=== PATIENT | female | born 1955 | race Caucasian/White ===

== ENCOUNTER 2016-05-16 09:35 | Day surgery (SDC) | payer BC ==
[2016-05-12 12:40] VITALS: BMI 23.6
[~2016-05-16 09:35] MED LIST: LACTATED RINGERS 1,000 ML IV SCH; LIDOCAINE 1% 20 ML VIAL (10MG/ML) FOR IV START INTRADERMA PRN
[2016-05-16 09:56] VITALS: RESP 16; TEMP 97.9
[2016-05-16] MEDS ORDERED: PROPOFOL 10 MG/ML 20 ML VIAL IV ONE (10:57)
[2016-05-16] MEDS ORDERED: LIDOCAINE 1% INJ 10MG/ML (20 ML MDV) ONE (10:57)
--- NOTE | 2016-05-16 11:37 | P.PCN ---
Date of Procedure: 05/16/16 Procedure(s) Performed: Procedure: Total colonoscopy. Preoperative diagnosis: Screening for neoplasia, patient has history of polyps. Postoperative diagnosis: Sigmoid diverticulosis with no evidence of acute diverticulitis, strictures, polyps or cancer. Preparation: HalfLytely prep. Sedation: Was provided by anesthesia. Brief clinical history: The patient is a 61-year-old female who is referred for this evaluation for screening for neoplasia. The patient had her first colonoscopy at age 51 and she believes she had polyps removed at that time. At this time, she has no abdominal complaints, bleeding or anemia. Procedure: With the patient on her left lateral decubitus position and after informed consent and adequate sedation, the perianal area was inspected and it did not show any fissures or fistulas. There were no masses felt on digital rectal examination. The Olympus CFQ 160L video colonoscope was then inserted in the rectum in the usual fashion and advanced to the cecum. There were multiple diverticular orifices seen scattered in the sigmoid but I saw no evidence of acute diverticulitis or strictures. No polyps or tumors were seen. The mucosa appeared healthy. I retroflexed endoscope in the rectum before the endoscope was withdrawn. The patient tolerated the procedure well. Plan: The patient was reassured. Discussed dietary measures. I recommended repeat exam in 5 years. She will follow-up with you as planned.
[2016-05-16 11:43] VITALS: BP 107/66; PULSE 70
== END 2016-05-16 12:16 | disposition home or self-care (01) ==
LOC: ORWHC2ENDO 09:35
DX: Z12.11 Encounter for screening for malignant neoplasm of colon (principal); Z86.010 Personal history of colon polyps; K57.30 Diverticulosis of large intestine without perforation or abscess without bleeding; E07.9 Disorder of thyroid, unspecified; Z88.8 Allergy status to other drugs, medicaments and biological substances; Z79.899 Other long term (current) drug therapy
CPT/HCPCS: J2001; J2704; G0105; 99153

== ENCOUNTER → 2017-04-04 | Outpatient (CLI) | payer BC ==
--- NOTE | 2017-04-05 12:01 | MM ---
Reason for exam: screening (asymptomatic). Last mammogram was performed 1 year and 1 month ago. History: Patient is postmenopausal and history of other cancer. Family history of breast cancer in 2 paternal cousins. 2 core biopsies of the left breast. Physical Findings: A clinical breast exam by your physician is recommended on an annual basis and results should be correlated with mammographic findings. MG Screening Mammo w CAD Bilateral CC and MLO view(s) were taken. Prior study comparison: March 08, 2016, bilateral MG screening mammo w CAD. September 07, 2015, right breast MG 3d diag mammo w/cad RT. The breast tissue is heterogeneously dense. This may lower the sensitivity of mammography. Finding: There are typically benign round calcifications in both breasts. There is a chronic nodularity in the right breast. There is no discrete abnormality. ASSESSMENT: Benign, BI-RAD 2 RECOMMENDATION: Routine screening mammogram of both breasts in 1 year.
== END | disposition home or self-care (01) ==
LOC: RADMAMWWP 12:22
PROVIDERS: ATTEND Family Medicine
DX: Z12.31 Encounter for screening mammogram for malignant neoplasm of breast (principal)

== ENCOUNTER → 2017-05-25 | Outpatient (CLI) | payer BC ==
--- NOTE | 2017-05-25 23:05 | MR ---
EXAMINATION TYPE: MR knee LT wo con DATE OF EXAM: 05/25/2017 COMPARISON: NONE HISTORY: Lt knee pain x 4 years TECHNIQUE: Multiplanar, multisequence imaging of the left knee is performed without IV contrast. FINDINGS: There is a large knee joint effusion. There is a large popliteal cyst. This measures 6 x 3 cm. The posterior cruciate ligament is intact. There is some thinning of the anterior cruciate ligament. There is at least a partial tear. There is horizontal defect in the posterior horn medial meniscus extending to the inferior surface. T he lateral meniscus appears intact. There is mild narrowing of the medial joint space with spurring o f the medial femoral and tibial condyles. There is subcutaneous edema over the anterior aspect of the knee. There is no evidence of a fracture. IMPRESSION: Large knee joint effusion and large popliteal cyst. Subcutaneous edema over the anterior knee. Horizontal tear posterior horn of the medial meniscus. Mild osteoarthritis in the medial joint space. There is probably a complete tear of the anterior cruciate ligament.
== END | disposition home or self-care (01) ==
LOC: RADMRIMAIN 19:42
PROVIDERS: ATTEND Orthopaedic Surgery
DX: M71.22 Synovial cyst of popliteal space [Baker], left knee (principal); S83.242A Other tear of medial meniscus, current injury, left knee, initial encounter; M17.12 Unilateral primary osteoarthritis, left knee

== ENCOUNTER → 2017-06-15 | Outpatient (CLI) | payer BC ==
[2017-06-15 17:11] LABS: Basophils # (A) 0.1 k/uL (0-0.2); Basophils % (A) 1 %; Eosinophils # (A) 0.2 k/uL (0-0.7); Eosinophils % (A) 3 %; HCT 44.9 % (34.0-46.0); HGB 14.7 gm/dL (11.4-16.0); Lymphocytes # (A) 2.6 k/uL (1.0-4.8); Lymphocytes % (A) 37 %; MCH 30.8 pg (25.0-35.0); MCHC 32.8 g/dL (31.0-37.0); Mean Platelet Volume 7.2; Monocytes # (A) 0.4 k/uL (0-1.0); Monocytes % (A) 5 %; Neutrophils # (A) 3.8 k/uL (1.3-7.7); Neutrophils % (A) 53 %; Platelet Count 270 k/uL (150-450); RBC 4.77 m/uL (3.80-5.40); RDW 12.8 % (11.5-15.5); WBC 7.1 k/uL (3.8-10.6)
[2017-06-15 17:57] LABS: Potassium 4.6 mmol/L (3.5-5.1)
== END | disposition home or self-care (01) ==
LOC: LABPAT 16:48
PROVIDERS: ATTEND Orthopaedic Surgery
DX: Z01.812 Encounter for preprocedural laboratory examination (principal); M23.92 Unspecified internal derangement of left knee
CPT/HCPCS: 36415; 80051; 85025

== ENCOUNTER 2017-06-28 09:13 | Day surgery (SDC) | payer BC ==
[2017-06-23 10:05] VITALS: BMI 23.2
--- NOTE | 2017-06-27 12:54 | HP ---
HISTORY AND PHYSICAL DATE OF SERVICE: 06/28/2017 Obdulia Schwab is a 62-year-old patient seen with progressive left knee pain. Treatment and options were discussed. She elected to proceed with left knee arthroscopy. Consent was obtained. PAST MEDICAL HISTORY: Hypothyroidism. PAST SURGICAL HISTORY: Foot surgery. DAILY MEDICATIONS: 1. Thyroxine. 2. Meloxicam. ALLERGIES: BENZOYL PEROXIDE. SOCIAL HISTORY: Patient denies current tobacco use. PHYSICAL EVALUATION OF THE LEFT KNEE: Range of motion is -2/3 to 110 degrees, mild intra-articular effusion. Tenderness along the medial and lateral joint lines. Positive medial Triston's. Positive lateral Triston's. Ligaments stable. Hip rotation without pain. Distal neurovascular exam intact. LEFT KNEE RADIOGRAPHS: Revealed mild to moderate medial and mild patellofemoral compartment osteoarthritis of the left knee. MRI revealed a medial meniscal tear and a joint effusion. IMPRESSION: Internal derangement left knee with medial meniscal tear. PLAN: Left knee arthroscopy with partial meniscectomy and debridement. MMODL / IJN: [id number] /
[~2017-06-28 09:13] MED LIST changes: +DEXAMETHASONE SOD PHOSPHATE 10 MG/ML 1 ML VIAL IV ONE; +ONDANSETRON 4 MG/2 ML VIAL IVP ONE; +SCOPOLAMINE 1.5MG/72HR PATCH TRANSDERM ONE; +ceFAZolin 1,000 MG in DEXTROSE/WATER 1 50ML.BAG IV ONE
[2017-06-28] MEDS ORDERED: ONDANSETRON 4 MG/2 ML VIAL ONE (10:49)
[2017-06-28] MEDS ORDERED: KETOROLAC 30 MG/ML 1 ML VIAL ONE (10:49)
[2017-06-28] MEDS ORDERED: fentaNYL (PF) 50 MCG/ML 2 ML AMP ONE (10:49)
[2017-06-28] MEDS ORDERED: LIDOCAINE 1% INJ 10MG/ML (20 ML MDV) ONE (10:49)
[2017-06-28] MEDS ORDERED: ceFAZolin IN SWFI 2 GM/20 ML SYRINGE IVP ONE (10:49)
[2017-06-28] MEDS ORDERED: PROPOFOL 10 MG/ML 20 ML VIAL IV ONE (10:49)
[2017-06-28] MEDS: HYDROmorphone 0.5 MG/0.5 ML SYRINGE IVP PRN ×4 (11:48→12:20)
--- NOTE | 2017-06-28 11:50 | P.OP ---
Date of Procedure: 06/28/17 Preoperative Diagnosis: Internal derangement left knee Postoperative Diagnosis: 1. Medial and lateral meniscal tears left knee 2. Grade 4 chondromalacia medial femoral condyle left knee 3. Grade 2/3 chondromalacia patella left knee 4. Partial ACL tear left knee 5. Reactive synovitis medial and suprapatellar compartments left knee Procedure(s) Performed: 1. Arthroscopic partial medial and lateral meniscectomy left knee 2. Arthroscopic chondroplasty medial femoral condyle left knee 3. Arthroscopic chondroplasty patella left knee 4. Arthroscopic microfracture medial femoral condyle left knee 5. Arthroscopic debridement partial ACL tear left knee 6. Arthroscopic partial synovectomy medial and suprapatellar compartments left knee Anesthesia: [place], local Surgeon: Phill Garrison Estimated Blood Loss (ml): 10 Pathology: none sent Condition: stable Disposition: PACU Indications for Procedure: 62-year-old patient seen with progressive left knee pain. After having treatment options discussed, she elected to proceed with arthroscopy. Operative Findings: see description of procedure Description of Procedure: Patient was taken to the operative suite. Patient underwent a general anesthetic by the department of anesthesia. Patient was given preoperative antibiotics. The left lower extremity was placed in a well-padded arthroscopic leg barker. The left leg was prepped and draped in the normal sterile orthopedic fashion. A lateral parapatellar and suprapatellar incision was made. Trochars were inserted. Arthroscopy was initiated. Suprapatellar pouch revealed diffuse thick reactive synovitis. The patellofemoral joint appeared to articulate congruently. There was grade 2/3 chondromalacia patella with some osteochondral tears present. The scope was guided into the medial gutter. No loose bodies or plica were identified. The scope was then guided into the medial compartment. A medial parapatellar incision was made. Trocar inserted followed by probe. There was a complex tear involving the posterior horn of the medial meniscus. There was grade 3/4 chondromalacia of the medial femoral condyle with osteochondral tears present. There was reactive synovitis anteriorly. No loose bodies. I performed a partial medial meniscectomy down to stable tissue. I performed a chondroplasty of the medial femoral condyle down to stable tissue and partial synovectomy. There was an area of exposed bone on the medial femoral condyle. I performed a microfracture to that area. An probed the residual meniscus and it was stable. The residual osteochondral surface of the femoral condyle was stable. Scope and probe were then guided into the intercondylar notch. Cruciates were identified, there was some superficial/partial tearing of the ACL present. I debrided that this down to stable tissue. It involved approximately 20-25% of the ACL the residual tissue was stable. The PCL appeared stable. The scope and probe were then guided into lateral compartment. There was a small radial tear in the posterior horn lateral meniscus. No chondromalacia, reactive synovitis or loose bodies. I performed a partial lateral meniscectomy. The residual meniscus was stable. The scope was in guided back into the suprapatellar compartment. Used a motorized shaver into the suprapatellar compartment. I debrided piecemeal fragments of meniscus. I performed a chondroplasty of patella. I performed a partial synovectomy. Shaver was removed. I took one more look around the entire knee, no residual debris. Instruments were now removed from the joint. The joint was infiltrated with .25% Marcaine. Steri-Strips were applied to the portal sites. Sterile dressings were applied. The patient was placed into a ANTOINETTE hose. No tourniquet was utilized. The patient was awakened, transferred to a bed and taken to recovery stable satisfactory condition.
[2017-06-28 11:54] VITALS: TEMP 97
[2017-06-28] MEDS ORDERED: LACTATED RINGERS 1,000 ML IV ONE (12:52)
[2017-06-28] MEDS ORDERED: HYDROcodone/APAP 5-325MG 1 EACH TAB PO ONE (13:18)
[2017-06-28 14:04] VITALS: BP 112/67; PULSE 58; RESP 18
== END 2017-06-28 14:45 | disposition home or self-care (01) ==
LOC: OR 09:13
PROVIDERS: ATTEND Orthopaedic Surgery
DX: S83.242A Other tear of medial meniscus, current injury, left knee, initial encounter (principal); S83.282A Other tear of lateral meniscus, current injury, left knee, initial encounter; S83.512A Sprain of anterior cruciate ligament of left knee, initial encounter; X58.XXXA Exposure to other specified factors, initial encounter; M22.42 Chondromalacia patellae, left knee; M65.862 Other synovitis and tenosynovitis, left lower leg; E03.9 Hypothyroidism, unspecified; Z79.1 Long term (current) use of non-steroidal anti-inflammatories (NSAID); Z79.51 Long term (current) use of inhaled steroids; Z79.899 Other long term (current) drug therapy; Z88.5 Allergy status to narcotic agent; Z88.8 Allergy status to other drugs, medicaments and biological substances
CPT/HCPCS: 29880; 29879; J1100; J2405; J2001; J3010; J1885; J2704; J1170; J0690

== ENCOUNTER → 2018-02-13 | Outpatient (CLI) | payer BC ==
[2018-02-13 14:33] LABS: Basophils % (A) 1 %; Eosinophils # (A) 0.2 k/uL (0-0.7); Eosinophils % (A) 3 %; HGB 14.6 gm/dL (11.4-16.0); Lymphocytes # (A) 2.4 k/uL (1.0-4.8); Lymphocytes % (A) 42 %; MCH 30.7 pg (25.0-35.0); MCHC 33.2 g/dL (31.0-37.0); MCV 92.2 fL (80.0-100.0); Mean Platelet Volume 7.3; Monocytes # (A) 0.3 k/uL (0-1.0); Monocytes % (A) 5 %; Neutrophils # (A) 2.7 k/uL (1.3-7.7); Neutrophils % (A) 47 %; Platelet Count 256 k/uL (150-450); RBC 4.77 m/uL (3.80-5.40); RDW 12.9 % (11.5-15.5); WBC 5.8 k/uL (3.8-10.6)
[2018-02-13 15:20] LABS: ALT 18 U/L (9-52); AST 26 U/L (14-36); Albumin 4.2 g/dL (3.5-5.0); Alkaline Phosphatase 72 U/L (38-126); Anion Gap 10 mmol/L; Blood Urea Nitrogen 16 mg/dL (7-17); Calcium 9.8 mg/dL (8.4-10.2); Carbon Dioxide 27 mmol/L (22-30); Chloride 103 mmol/L (98-107); Cholesterol 250 mg/dL (<200); Glucose 87 mg/dL (74-99); Sodium 140 mmol/L (137-145); Total Bilirubin 0.7 mg/dL (0.2-1.3); Total Protein 7.3 g/dL (6.3-8.2); Triglycerides 93 mg/dL (<150)
[2018-02-13 15:34] LABS: HDL Cholesterol 73 mg/dL (40-60); LDL Cholesterol,Calculated 158 mg/dL (0-99)
== END | disposition home or self-care (01) ==
LOC: LABWHC1 12:05
PROVIDERS: ATTEND Family Medicine
DX: E78.5 Hyperlipidemia, unspecified (principal); E03.9 Hypothyroidism, unspecified
CPT/HCPCS: 36415; 80053; 80061; 84443; 85025

== ENCOUNTER → 2018-05-11 | Outpatient (CLI) | payer BC ==
--- NOTE | 2018-05-11 11:12 | US ---
EXAMINATION TYPE: US pelvic complete DATE OF EXAM: 05/11/2018 COMPARISON: 2011 US CLINICAL HISTORY: R10.11 RUQ PAIN. Pelvic pain TECHNIQUE: Transabdominal (TA). Date of LMP: post menopausal, no HRT. EXAM MEASUREMENTS: Uterus: 6.5 x 3.8 x 4.9 cm Endometrial Stripe: 0.5 cm Right Ovary: 2.0 x 2.1 x 1.7 cm Left Ovary: 2.4 x 1.9 x 1.3 cm 1. Uterus: Anteverted wnl 2. Endometrium: wnl 3. Right Ovary: wnl 4. Left Ovary: wnl 5. Bilateral Adnexa: wnl 6. Posterior cul-de-sac: no free fluid IMPRESSION:
--- NOTE | 2018-05-11 11:43 | US ---
EXAMINATION TYPE: US abdomen complete DATE OF EXAM: 05/11/2018 COMPARISON: NONE CLINICAL HISTORY: R10.11 RUQ. EXAM MEASUREMENTS: Liver Length: 13.1 cm Gallbladder Wall: 0.2 cm CBD: 1.1 cm Spleen: 10.2 cm Right Kidney: 10.4 x 4.5 x 5.3 cm Left Kidney: 10.1 x 6.4 x 5.8 cm Pancreas: wnl Liver: wnl Gallbladder: No stones seen Evidence for sonographic Navarro's sign: No CBD: dilated at 1.1 cm. Spleen: wnl Right Kidney: No hydronephrosis or masses seen Left Kidney: No hydronephrosis or masses seen Upper IVC: wnl Abd Aorta: wnl The liver is homogenous. The intrahepatic portion of the IVC and proximal abdominal aorta are within normal limits. There is no evidence of cholelithiasis. The visualized portions of the pancreas are homogenous. The spleen is unremarkable. Kidneys are symmetric and free of hydronephrosis. No renal lesions are seen. IMPRESSION: 1. Nonspecific CBD dilatation.
== END ==
LOC: RADUSWWP 09:28
PROVIDERS: ATTEND Family Medicine
DX: K83.8 Other specified diseases of biliary tract (principal)
CPT/HCPCS: 76700; 76856

== ENCOUNTER → 2019-11-11 | Outpatient (CLI) | payer BC ==
--- NOTE | 2019-11-13 13:27 | MM ---
Reason for exam: screening (asymptomatic). Last mammogram was performed 1 year and 7 months ago. History: Patient is postmenopausal and history of other cancer. Family history of breast cancer in 2 paternal cousins. 2 core biopsies of the left breast. Physical Findings: A clinical breast exam by your physician is recommended on an annual basis and results should be correlated with mammographic findings. MG 3D Screening Mammo W/Cad Bilateral CC and MLO view(s) were taken. Prior study comparison: April 05, 2018, bilateral MG screening mammo w CAD. April 04, 2017, bilateral MG screening mammo w CAD. The breast tissue is extremely dense which could obscure a lesion on mammography. There is chronic nodularity in the right breast. No significant changes when compared with prior studies. ASSESSMENT: Benign, BI-RAD 2 RECOMMENDATION: Routine screening mammogram of both breasts in 1 year.
== END | disposition home or self-care (01) ==
LOC: RADMAMWWP 11:02
PROVIDERS: ATTEND Family Medicine
DX: Z12.31 Encounter for screening mammogram for malignant neoplasm of breast (principal)
CPT/HCPCS: 77063; 77067

== ENCOUNTER → 2019-11-14 | Outpatient (CLI) | payer BC ==
--- NOTE | 2019-11-14 16:38 | BD ---
EXAMINATION TYPE: Axial Bone Density DATE OF EXAM: 11/14/2019 COMPARISON: 03.02.2015 CLINICAL HISTORY: 64 YR OLD FEMALE.....ICD-10 CODE: Z78.0 ASYMPTOMATIC MENOPAUSAL STATE Height: 67.3 Weight: 161 FRAX RISK QUESTIONS: History of Fracture in Adulthood: YES RISK FACTORS HISTORY OF: RT HAND/FINGER, LT FOOT/TOE AN ADULT Postmenopausal woman: YES, AT AGE 53 Hyperparathyroidism: NO Adrenal Insufficiency: NO MEDICATIONS: Prednisone or other steroids: FLONASE Thyroid Medications: YES, SYNTHROID X30 YRS Additional Medications: REFLUX MEDS ON AND OFF, CALCIUM WITH D, TUMS Additional History: REFLUX, EXAM MEASUREMENTS: Bone mineral densitometry was performed using the [employer] System. Bone mineral density as measured about the Lumbar spine is: ----- L1-L4(G/cm2): 1.240 T Score Values are as follows: ----- L1: -0.3 ----- L2: -0.3 ----- L3: 1.4 ----- L4: 1.0 ----- L1-L4: 0.5 Bone mineral density has: Increased 8.6% SINCE 03.02.2015 Bone mineral density about the R hip (g/cm2): 1.072 Bone mineral density about the L hip (g/cm2): 1.058 T Score values are as follows: -----R Neck: 0.2 -----L Neck: 0.1 -----R Total: 0.5 -----L Total: 0.4 Bone mineral density has: Decreased -4.7% SINCE 03.02.2015 FRAX%s: THERE IS A 11.0% CHANCE FOR A MAJOR OSTEOPOROTIC FX AND A 0.3% FOR HIP.....PROBABILITY FOR FX IN 10 YRS TIME IMPRESSION: Normal (Values between +1 and -1 indicate normal bone mass). Consider repeating this study in 5 year s or sooner if there is some new clinical indication. NOTE: T-SCORE=SD OF THE YOUNG ADULT MEAN.
== END | disposition home or self-care (01) ==
LOC: RADBDWWP 12:54
PROVIDERS: ATTEND Family Medicine
DX: Z78.0 Asymptomatic menopausal state (principal)
CPT/HCPCS: 77080

== ENCOUNTER → 2019-11-25 | Outpatient (CLI) | payer BC ==
--- NOTE | 2019-11-26 07:01 | MR ---
EXAMINATION TYPE: MR ankle LT wo con DATE OF EXAM: 11/25/2019 COMPARISON: None. HISTORY: Evaluate Left Posterior Tibia Tendon Tear. Hallux rigidus. Left ankle pain redness and swell ing for 2 years per patient. Standard multiplanar, multisequence MRI departmental protocol Multiplanar, multisequence images of the left ankle were acquired. FINDINGS: Distal Achilles tendon is intact. Visualized plantar fascia is within normal limits. The Peroneus brevis and longus tendons are intact. The flexor tendons along posterior medial aspect o f the ankle are intact. Posterior tibial tendon shows some increased thickening without abnormal sign al near the level of the anterior calcaneus just proximal to the navicular bone near attachment. Incr eased focal fluid signal surrounds the FHL tendon posterior to the talus. Extensor tendons anteriorly are intact. The anterior tibiofibular and anterior talofibular ligaments are intact. Medial deltoid ligaments are intact. Hindfoot articulations are maintained. Bone marrow signal intensity is preserved. Lisfranc joints are maintained. No suspicious soft tissue swelling or focal fluid collection. IMPRESSION: FHL tenosynovitis. No discrete tendon or ligamentous tear.
== END | disposition home or self-care (01) ==
LOC: RADMRIMAIN 14:54
PROVIDERS: ATTEND Orthopaedic Surgery Foot and Ankle Surgery
DX: M65.872 Other synovitis and tenosynovitis, left ankle and foot (principal); M20.21 Hallux rigidus, right foot

== ENCOUNTER → 2021-03-12 | Outpatient (CLI) | payer BC ==
[2021-03-13 00:15] LABS: T4, Free (Free Thyroxine) 1.11 ng/dL (0.800-1.800)
== END | disposition home or self-care (01) ==
LOC: LABWHC1 06:56
PROVIDERS: ATTEND Internal Medicine
DX: E03.9 Hypothyroidism, unspecified (principal)
CPT/HCPCS: 36415; 84439; 84443; 84481

== ENCOUNTER → 2021-12-13 | Outpatient (CLI) | payer MEDICARE, BC ==
--- NOTE | 2021-12-13 16:29 | BD ---
EXAMINATION TYPE: Axial Bone Density DATE OF EXAM: 12/13/2021 COMPARISON: NONE CLINICAL HISTORY: 66 year old Female. ICD-10 CODE: M81.0AGE-RELATED OSTEOPOROSIS Height: 67 Weight: 151.0 FRAX RISK QUESTIONS: Alcohol (3 or more units per day): no Family History (Parent hip fracture): yes Glucocorticoids (More than 3mos): no (Ex: prednisone, prednisolone, methylprednisolone, dexamethasone, and hydrocortisone). History of Fracture in Adulthood: no Secondary Osteoporosis: 1. Type 1 Diabetes: no 2. Hyperthyroidism: no 3. Menopause before 45: no 4. Malnutrition: no 5. Chronic liver disease: no Rheumatoid Arthritis: no Current Tobacco Use: no RISK FACTORS HISTORY OF: Surgery to Spine/Hip(right/left)/Wrist (right/left): no Family History of Osteoporosis: no Active: yes Diet low in dairy products/other sources of calcium: no Postmenopausal woman: yes Lost more than 2 inches in height since high school: no MEDICATIONS: Thyroid Medications: How Long: Additional History: EXAM MEASUREMENTS: Bone mineral densitometry was performed using the [employer] System. Bone mineral density as measured about the Lumbar spine is: ----- L1-L4(G/cm2): 1.177 T Score Values are as follows: ----- L1: -0.1 ----- L2: -0.3 ----- L3: -0.4 ----- L4: 0.4 ----- L1-L4: 0.0 Bone mineral density has: increased 0.8 % since study of: 03.02.2015 Bone mineral density about the R hip (g/cm2): 1.047 Bone mineral density about the L hip (g/cm2): 10.20 T Score values are as follows: -----R Neck: 0.1 -----L Neck: -0.1 -----R Total: 0.1 -----L Total: 0.0 Bone mineral density has: decreased -9.4 % since study of: 03.02.2015 FRAX%s: The graph provided illustrates a 13.1% chance for a major osteoporotic fx and a 0.3% chance f or the hips probability for fx in 10 years time. IMPRESSION: Normal (Values between +1 and -1 indicate normal bone mass). Consider repeating this study in 5 year s or sooner if there is some new clinical indication. NOTE: T-SCORE=SD OF THE YOUNG ADULT MEAN.
--- NOTE | 2021-12-14 17:00 | MM ---
Reason for Exam: Screening (asymptomatic). Last mammogram was performed 2 year(s) and 1 month(s) ago. Patient History: Menarche at age 13. First Full-Term at age 24. Postmenopausal. Other cancer. Core Biopsy on the Left side. Core Biopsy on the Left side. Paternal cousin had breast cancer, age 40. Paternal cousin had breast cancer, age 55. Risk Values: Jacey 5 year model risk: 2.2%. NCI Lifetime model risk: 8.3%. Prior Study Comparison: 04/04/2017 Bilateral Screening Mammogram, [facility]. 04/05/2018 Bilateral Screening Mammogram, [facility]. 11/11/2019 Bilateral Screening Mammogram, [facility]. Tissue Density: The breast tissue is heterogeneously dense. This may lower the sensitivity of mammography. Findings: Analyzed By CAD. Small scattered benign oral cyst calcifications on both sides. Asymmetric density superior left MLO view is more defined and incompletely disperses on 3-D images. Further evaluation recommended. Area of asymmetric density central left MLO view middle depth becomes more defined on 3-D images. This may represent superimposition shadow but further evaluation recommended. Chronic nodularity in the right breast. Overall Assessment: Incomplete: need additional imaging evaluation, BI-RAD 0 Management: Special View Mammogram of the left breast. 1. Additional views left breast to include spot 3-D CC, spot 3-D MLO (2 sites), and 3-D LM views. 2. Targeted left breast ultrasound if any persisting abnormality. [facility] will attempt to contact patient to return for supplemental views and ultrasound if indicated. Electronically signed and approved by: Jaimie Bello M.D. Radiologist
== END | disposition home or self-care (01) ==
LOC: RADBDWWP 12:18
PROVIDERS: ATTEND Internal Medicine
DX: Z12.31 Encounter for screening mammogram for malignant neoplasm of breast (principal); Z78.0 Asymptomatic menopausal state
CPT/HCPCS: 77063; 77067; 77080

== ENCOUNTER 2021-12-15 06:25 | Day surgery (SDC) | payer MEDICARE, BC ==
[2021-12-13 16:14] VITALS: BMI 22.7
[~2021-12-15 06:25] MED LIST changes: -DEXAMETHASONE SOD PHOSPHATE 10 MG/ML 1 ML VIAL IV ONE; -LIDOCAINE 1% 20 ML VIAL (10MG/ML) FOR IV START INTRADERMA PRN; -ONDANSETRON 4 MG/2 ML VIAL IVP ONE; -SCOPOLAMINE 1.5MG/72HR PATCH TRANSDERM ONE; -ceFAZolin 1,000 MG in DEXTROSE/WATER 1 50ML.BAG IV ONE
[2021-12-15 06:59] VITALS: TEMP 97.7
[2021-12-15] MEDS ORDERED: PROPOFOL 10 MG/ML 20 ML VIAL IV ONE (07:40)
--- NOTE | 2021-12-15 08:00 | P.PCN ---
Date of Procedure: 12/15/21 Procedure(s) Performed: BRIEF HISTORY: Patient is a 66-year-old pleasant white female scheduled for an elective colonoscopy as a part of evaluation of prior history of colon polyps. PROCEDURE PERFORMED: Colonoscopy. PREOPERATIVE DIAGNOSIS: History of colon polyps. IV sedation per Anesthesia. PROCEDURE: After informed consent was obtained, the patient, was brought into the endoscopy unit. IV sedation was administered by Anesthesia under continuous monitoring. Digital rectal examination was normal. Initially the Olympus CF-160 flexible video colonoscope was then inserted in the rectum, gradually advanced into the cecum without any difficulty. Careful examination was performed as the scope was gradually being withdrawn. Ileocecal valve and the appendiceal orifice were visualized and appeared normal. Prep was excellent. Mucosa of the cecum, ascending colon, transverse colon, descending colon, sigmoid colon, and rectum appeared normal. Moderate sigmoid diverticulosis. Retroflexion was performed in the rectum and no lesions were seen. The patient tolerated the procedure well. IMPRESSION: Normal-appearing colon from rectum to cecum with no evidence of colorectal. Scattered sigmoid diverticulosis. RECOMMENDATIONS: Findings of this examination were discussed with the patient as well as her family. She was advised to have a repeat screening colonoscopy in 10 years.
[2021-12-15 08:29] VITALS: RESP 17
[2021-12-15 08:33] VITALS: BP 124/65; PULSE 60
== END 2021-12-15 08:45 | disposition home or self-care (01) ==
LOC: ORWHC2ENDO 06:25
PROVIDERS: ATTEND Internal Medicine Gastroenterology
DX: Z12.11 Encounter for screening for malignant neoplasm of colon (principal); K57.30 Diverticulosis of large intestine without perforation or abscess without bleeding; E78.5 Hyperlipidemia, unspecified; Z80.0 Family history of malignant neoplasm of digestive organs; Z86.010 Personal history of colon polyps; E07.9 Disorder of thyroid, unspecified; Z79.890 Hormone replacement therapy; Z79.1 Long term (current) use of non-steroidal anti-inflammatories (NSAID); Z79.899 Other long term (current) drug therapy; Z98.890 Other specified postprocedural states; Z88.3 Allergy status to other anti-infective agents
CPT/HCPCS: J2704; G0105; 45378

== ENCOUNTER → 2021-12-22 | Outpatient (CLI) | payer MEDICARE, BC ==
--- NOTE | 2021-12-22 14:23 | MM ---
Reason for Exam: Additional evaluation requested from abnormal screening. Last screening mammogram was performed less than 1 month ago. Patient History: Menarche at age 13. First Full-Term at age 24. Postmenopausal. Other cancer. Core Biopsy on the Left side. Core Biopsy on the Left side. Paternal cousin had breast cancer, age 40. Paternal cousin had breast cancer, age 55. Risk Values: Jacey 5 year model risk: 2.2%. NCI Lifetime model risk: 8.3%. Prior Study Comparison: 04/05/2018 Bilateral Screening Mammogram, [facility]. 11/11/2019 Bilateral Screening Mammogram, [facility]. 12/13/2021 Bilateral MG 3D screening mammo w/cad, [facility]. Tissue Density: Left: The breast tissue is heterogeneously dense. This may lower the sensitivity of mammography. Findings: Analyzed By CAD. The questioned areas of asymmetric density do not persist on additional views. No significant change from prior exams. Overall Assessment: Benign, BI-RAD 2 Management: Screening Mammogram of both breasts in 1 year. 1. Patient should continue monthly self breast exams. 2. A clinical breast exam by your physician is recommended on an annual basis. 3. This exam should not preclude additional follow-up of suspicious palpable abnormalities. Results were given to the patient verbally at the time of exam. Electronically signed and approved by: Jaimie Bello M.D. Radiologist
== END | disposition home or self-care (01) ==
LOC: RADMAMWWP 13:19
PROVIDERS: ATTEND Internal Medicine
DX: R92.8 Other abnormal and inconclusive findings on diagnostic imaging of breast (principal); Z78.0 Asymptomatic menopausal state; Z80.3 Family history of malignant neoplasm of breast
CPT/HCPCS: 77065; G0279; 77061

== ENCOUNTER → 2023-01-06 | Outpatient (CLI) | payer MEDICARE, BC ==
--- NOTE | 2023-01-14 08:54 | MR ---
EXAMINATION TYPE: MR knee RT wo con DATE OF EXAM: 01/06/2023 COMPARISON: None HISTORY: Right knee pain, hx injury/surgery. TECHNIQUE: Multiplanar, multisequence imaging of the right knee is performed without IV contrast. FINDINGS: There is extensive metallic artifact involving the patella with no radiographs available for correlat ion. Appears to represent internal fixation for a prior patellar fracture. There is a subchondral cyst with surrounding edema in the posterior lateral tibial plateau. There is moderate osteoarthritic change of all 3 compartments of the knee with thinning of the articu lar cartilage as well as small subchondral bone changes and hypertrophic spurring at the margins. In the proximal medial tibia near the attachment of the joint capsule and medial collateral ligament the re is a cortical defect with an adjacent small ossicle appears represent an old avulsion injury. Ther e is a small intrasubstance tear of the medial collateral ligament with surrounding edema consistent with a partial tear or strain of the medial collateral ligament. There is an oblique tear of the post erior horn of the medial meniscus extending into the body of the meniscus. The lateral meniscus is in tact. The lateral collateral ligament and cruciate ligaments are intact. IMPRESSION: 1. Postsurgical changes involving the patella. 2. Strain with small intrasubstance tear of the medial collateral ligament. 3. Tear of the posterior horn and body of the medial meniscus. 4. Moderate osteoarthritic change of all 3 compartments of the knee. 5. Small joint effusion
== END | disposition home or self-care (01) ==
LOC: RADMRIMAIN 10:55
PROVIDERS: ATTEND Orthopaedic Surgery
DX: S82.001A Unspecified fracture of right patella, initial encounter for closed fracture (principal); S83.241A Other tear of medial meniscus, current injury, right knee, initial encounter; M17.11 Unilateral primary osteoarthritis, right knee; Z47.89 Encounter for other orthopedic aftercare; M25.461 Effusion, right knee

== ENCOUNTER → 2023-01-06 | Outpatient (CLI) | payer MEDICARE, BC ==
--- NOTE | 2023-01-10 22:51 | MM ---
Reason for Exam: Screening (asymptomatic). Last mammogram was performed 1 year(s) and 1 month(s) ago. Patient History: Menarche at age 13. First Full-Term at age 24. Postmenopausal. Patient has history of breast feeding. Other cancer. Core Biopsy on the Left side. Core Biopsy on the Left side. Paternal cousin had breast cancer, age 40. Paternal cousin had breast cancer, age 55. Risk Values: Jacey 5 year model risk: 2.3%. NCI Lifetime model risk: 8.0%. Prior Study Comparison: 11/11/2019 Bilateral Screening Mammogram, [facility]. 12/13/2021 Bilateral MG 3D screening mammo w/cad, [facility]. 12/22/2021 Left MG 3D work up w/cad , [facility]. Tissue Density: The breast tissue is heterogeneously dense. This may lower the sensitivity of mammography. Findings: Analyzed By CAD. On the right MLO view, area of possible distortion centrally lower aspect. Further evaluation is recommended. Other areas of asymmetric density remain unchanged. Overall Assessment: Incomplete: need additional imaging evaluation, BI-RAD 0 Management: Special View Mammogram of the right breast. Diagnostic Breast Ultrasound of the right breast. Additional views to include spot 3-D MLO and 3 lateral views.. Targeted right breast ultrasound based on findings on additional views. [facility] will attempt to contact patient to return for supplemental views and ultrasound if indicated. Electronically signed and approved by: Jaimie Bello M.D. Radiologist
== END | disposition home or self-care (01) ==
LOC: RADMAMWWP 10:32
PROVIDERS: ATTEND Internal Medicine
DX: Z12.31 Encounter for screening mammogram for malignant neoplasm of breast (principal); Z78.0 Asymptomatic menopausal state; Z80.3 Family history of malignant neoplasm of breast
CPT/HCPCS: 77063; 77067

== ENCOUNTER → 2023-01-19 | Outpatient (CLI) | payer MEDICARE, BC ==
--- NOTE | 2023-01-19 10:57 | USB ---
Reason for Exam: Additional evaluation requested from abnormal screening. Patient History: Menarche at age 13. First Full-Term at age 24. Postmenopausal. Patient has history of breast feeding. Other cancer. Core Biopsy on the Left side. Core Biopsy on the Left side. Paternal cousin had breast cancer, age 40. Paternal cousin had breast cancer, age 55. Risk Values: Jacey 5 year model risk: 2.3%. NCI Lifetime model risk: 8.0%. Technique: Method: Whole Breast Handheld. Prior Study Comparison: 12/13/2021 Bilateral MG 3D screening mammo w/cad, [facility]. 12/22/2021 Left MG 3D work up w/cad , [facility]. 01/06/2023 Bilateral MG 3D screening mammo w/cad, [facility]. Findings: The whole breast of the right breast, the axilla of the right breast and the retroareolar of the right breast were scanned. A complete US of all four quadrants of the breast , axilla, and retro-areolar region were reviewed. At the 10:00 position, 8 cm from the nipple, there is a oblong, somewhat reniform shaped hypoechoic structure possibly with hypervascularity measuring 6 x 4 x 3 mm. Possible intramammary lymph node. At the 11:00 position, 6 cm from the nipple, slightly lobulated hypoechoic versus cystic structure measuring 8 x 6 x 4 mm. A cyst versus intermammary lymph node are suspected. Six-month follow-up to reassess both of these findings. No other solid or cystic lesion. Overall Assessment: Probably benign, BI-RAD 3 Management: Diagnostic Breast Ultrasound of the right breast in 6 months. A clinical breast exam by your physician is recommended on an annual basis and results should be correlated with mammographic findings. This exam should not preclude additional follow-up of suspicious palpable abnormalities. Results were given to the patient verbally at the time of exam. Electronically signed and approved by: Jaimie Bello M.D. Radiologist
--- NOTE | 2023-01-19 14:44 | MM ---
Reason for Exam: Additional evaluation requested from abnormal screening. Last screening mammogram was performed less than 1 month ago. Patient History: Menarche at age 13. First Full-Term at age 24. Postmenopausal. Patient has history of breast feeding. Other cancer. Core Biopsy on the Left side. Core Biopsy on the Left side. Paternal cousin had breast cancer, age 40. Paternal cousin had breast cancer, age 55. Risk Values: Jacey 5 year model risk: 2.3%. NCI Lifetime model risk: 8.0%. Prior Study Comparison: 03/08/2016 Bilateral Screening Mammogram, [facility]. 04/04/2017 Bilateral Screening Mammogram, [facility]. 04/05/2018 Bilateral Screening Mammogram, [facility]. 11/11/2019 Bilateral Screening Mammogram, [facility]. 12/13/2021 Bilateral MG 3D screening mammo w/cad, [facility]. 12/22/2021 Left MG 3D work up w/cad LT, [facility]. 01/06/2023 Bilateral MG 3D screening mammo w/cad, [facility]. Tissue Density: Right: The breast tissue is heterogeneously dense. This may lower the sensitivity of mammography. Findings: Analyzed By CAD. The questioned central area of asymmetric density on the right MLO view does not appear to persist on spot 3-D and 3-D lateral views. Unchanged intramammary lymph node upper outer quadrant. Given dense tissues, further ultrasound evaluation is recommended. Overall Assessment: Incomplete: need additional imaging evaluation, BI-RAD 0 Management: Diagnostic Breast Ultrasound of the right breast. Electronically signed and approved by: Jaimie Bello M.D. Radiologist
== END | disposition home or self-care (01) ==
LOC: RADMAMWWP 09:34
PROVIDERS: ATTEND Internal Medicine
DX: R92.8 Other abnormal and inconclusive findings on diagnostic imaging of breast (principal); Z78.0 Asymptomatic menopausal state; Z80.3 Family history of malignant neoplasm of breast
CPT/HCPCS: 77065; 76641; G0279; 77061

== ENCOUNTER → 2023-07-21 | Outpatient (CLI) | payer MEDICARE, BC ==
--- NOTE | 2023-07-21 13:32 | USB ---
Reason for Exam: Follow-up at short interval from prior study. Patient History: Menarche at age 13. First Full-Term at age 24. Postmenopausal. Patient has history of breast feeding. Other cancer. Core Biopsy on the Left side. Core Biopsy on the Left side. Paternal cousin had breast cancer, age 40. Paternal cousin had breast cancer, age 55. Risk Values: Jacey 5 year model risk: 2.3%. NCI Lifetime model risk: 7.7%. Technique: Method: Targeted. Prior Study Comparison: 12/22/2021 Left MG 3D work up w/cad LT, [facility]. 01/06/2023 Bilateral MG 3D screening mammo w/cad, [facility]. 01/19/2023 Right MG 3D work up w/cad RT, [facility]. Findings: The upper section of the breast of the right breast, the axilla of the right breast and the retroareolar of the right breast were scanned. Targeted ultrasound right breast 10 11:00 including scanning of the subareolar region and axilla. At the 10:00 position, there is a crescentic hypoechoic lesion with some internal vascularity measuring 6 x 5 x 4 mm. This is in comparison to 6 x 4 x 3 mm, previously. At the 11:00 position, 6 cm from the nipple, there is a lobulated hypoechoic lesion measuring 8 x 6 x 4 mm. This is in comparison to 8 x 6 x 4 mm, previously. One of these may relate to the intramammary lymph node on mammogram. Ongoing short interval follow-up is recommended. Overall Assessment: Probably benign, BI-RAD 3 Management: Diagnostic Mammogram of both breasts in 6 months. Diagnostic Breast Ultrasound of the right breast in 6 months. Total one-year follow-up mammogram right breast and annual exam of the left breast. Total one-year follow-up right breast ultrasound for the 10 and 11:00 areas. A clinical breast exam by your physician is recommended on an annual basis and results should be correlated with mammographic findings. This exam should not preclude additional follow-up of suspicious palpable abnormalities. Results were given to the patient verbally at the time of exam. Electronically signed and approved by: Jaimie Bello M.D. Radiologist
== END | disposition home or self-care (01) ==
LOC: RADUSWWP 12:42
PROVIDERS: ATTEND Internal Medicine
DX: R92.8 Other abnormal and inconclusive findings on diagnostic imaging of breast (principal); Z80.3 Family history of malignant neoplasm of breast; Z78.0 Asymptomatic menopausal state

== ENCOUNTER → 2024-01-01 | Outpatient (CLI) | payer MEDICARE, BC ==
--- NOTE | 2024-01-01 09:59 | US ---
EXAMINATION TYPE: US carotid duplex BILAT DATE OF EXAM: 01/01/2024 COMPARISON: NONE CLINICAL INDICATION: Female, 68 years old with history of Screening; No HTN TECHNIQUE: Carotid duplex ultrasound examination. Indirect Doppler criteria was utilized. 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 Criteria for Assigning % of Stenosis / Diameter reduction (Estimation based on the indirect measurements of the internal carotid artery velocities (ICA PSV). 1. Normal (no stenosis)=ICA PSV < 125 cm/s: ratio < 2.0: ICA EDV<40 cm/s. 2. Less than 50% stenosis=ICA PSV < 125 cm/s: ratio < 2.0: ICA EDV<40 cm/s. 3. 50 to 69% stenosis=ICA PSV of 125 to 230 cm/s: ration 2.0 ? 4.0: ICA EDV 40-100 cm/s. 4. Greater than 70% stenosis to near occlusion= ICA PSV > 230 cm/s: ratio > 4.0: ICA EDV > 100 cm/s. 5. Near occlusion= ICA PSV velocities may be low or undetectable: variable ratio and ICA EDV. 6. Total occlusion=unable to detect flow.
--- NOTE | 2024-01-01 10:00 | US ---
EXAMINATION TYPE: US Aorta Screening DATE OF EXAM: 01/01/2024 COMPARISON: NONE CLINICAL INDICATION: Female, 68 years old with history of Screening; Family history TECHNIQUE: Multiple sonographic images of the abdominal aorta are obtained. FINDINGS: EXAM MEASUREMENTS: Abdominal Aorta: Proximal: 2.5 x 2.4 cm Mid: 1.7 x 1.7 cm Distal: 1.5 x 1.5 cm Bifurcation: Right Iliac: 0.9 x 0.8 cm Left Iliac: 0.9 x 0.9 cm IRRIGATOR NOTES: No AAA visualized at time of scan IMPRESSION: No evidence for abdominal aortic aneurysm.
== END | disposition home or self-care (01) ==
LOC: RADUSWWP 14:18
PROVIDERS: ATTEND Internal Medicine
DX: Z13.6 Encounter for screening for cardiovascular disorders (principal); I65.23 Occlusion and stenosis of bilateral carotid arteries
CPT/HCPCS: 76706; 93880

== ENCOUNTER → 2024-01-24 | Outpatient (CLI) | payer MEDICARE, BC ==
--- NOTE | 2024-01-24 13:46 | MM ---
Reason for Exam: Follow-up at short interval from prior study. Last screening mammogram was performed 12 month(s) ago. Patient History: Menarche at age 13. First Full-Term at age 24. Postmenopausal. Patient has history of breast feeding. Other cancer. Core Biopsy on the Left side. Core Biopsy on the Left side. Paternal cousin had breast cancer, age 40. Paternal cousin had breast cancer, age 55. Risk Values: Jacey 5 year model risk: 2.3%. NCI Lifetime model risk: 7.7%. Prior Study Comparison: 03/02/2015 Bilateral Screening Mammogram, [facility]. 03/08/2016 Bilateral Screening Mammogram, [facility]. 04/04/2017 Bilateral Screening Mammogram, [facility]. 11/11/2019 Bilateral Screening Mammogram, [facility]. 12/13/2021 Bilateral MG 3D screening mammo w/cad, [facility]. 01/06/2023 Bilateral MG 3D screening mammo w/cad, [facility]. 01/19/2023 Right MG 3D work up w/cad RT, [facility]. Tissue Density: The breasts are extremely dense, which lowers the sensitivity of mammography. Findings: Analyzed By CAD. The pattern is symmetrical. Scattered benign punctate calcifications are present. Benign vascular calcifications present bilaterally. No suspicious groups of microcalcifications, spiculated or lobular masses, architectural distortion or other secondary signs of malignancy are mammographically apparent. Overall Assessment: Benign, BI-RAD 2 Management: Screening Mammogram of both breasts in 1 year. A negative mammogram report should not preclude additional follow up of suspicious palpable abnormalities. Patient should continue monthly self breast exam. A clinical breast exam by your physician is recommended on an annual basis and results should be correlated with mammographic findings. Note on Jacey scores and lifetime risk: 1. A Jacey score greater than 3% is considered moderate risk. If this is the case, consider specialist referral to assess eligibility for a risk reducing agent. 2. If overall lifetime risk for the development of breast cancer is 20% or higher, the patient may qualify for future screening with alternating mammogram and breast MRI. [facility], , 01/24/2024 1:18 PM. Electronically signed and approved by: Dayday Vanessa D.O. Radiologis
--- NOTE | 2024-01-24 13:59 | USB ---
Reason for Exam: Follow-up at short interval from prior study. Patient History: Menarche at age 13. First Full-Term at age 24. Postmenopausal. Patient has history of breast feeding. Other cancer. Core Biopsy on the Left side. Core Biopsy on the Left side. Paternal cousin had breast cancer, age 40. Paternal cousin had breast cancer, age 55. Risk Values: Jacey 5 year model risk: 2.3%. NCI Lifetime model risk: 7.7%. Prior Study Comparison: 12/22/2021 Left MG 3D work up w/cad LT, [facility]. 01/06/2023 Bilateral MG 3D screening mammo w/cad, [facility]. 01/19/2023 Right MG 3D work up w/cad RT, [facility]. 07/21/2023 Bilateral US breast limited RT, [facility]. Findings: The upper outer quadrant of the right breast, the axilla of the right breast and the retroareolar of the right breast were scanned. Duct ectasia is present. There are some prominent ducts in the retroareolar region. There is a small cystlike area at the 11:00 position 6 cm the nipple. Current measurement 0.7 x 0.3 cm. Curvilinear areas present at the 10:00 position 8 cm from the nipple. This appears more cystlike on the current examination. No interval growth is evident. Current measurements 0.4 x 0.3 cm. Overall Assessment: Benign, BI-RAD 2 Management: Screening Mammogram of both breasts in 1 year. A clinical breast exam by your physician is recommended on an annual basis and results should be correlated with mammographic findings. This exam should not preclude additional follow-up of suspicious palpable abnormalities. Results were given to the patient verbally at the time of exam. [facility], , 01/24/2024 1:51 PM. Electronically signed and approved by: Dayday Vanessa D.O. Radiologis
== END | disposition home or self-care (01) ==
LOC: RADMAMWWP 12:51
PROVIDERS: ATTEND Internal Medicine
CPT/HCPCS: 77062; 77066